=== PATIENT | female | born 1955 ===

== ENCOUNTER 2023-04-28 14:21 | Inpatient (IN) | payer BC, MEDICARE, OTHER ==
[~2023-04-28] VITALS: Ht 165.1 cm; Wt 67.6 kg
[2023-04-28 15:04] LABS: Basophils # (auto) 0 10 ^3/uL (0-0.2); Basophils % (auto) 0.7 % (0.0-2.0); Eosinophils # (auto) 0.2 10 ^3/uL (0-0.8); Eosinophils % (auto) 3.8 % (0.0-7.0); Hematocrit 39.6 % (36.0-46.0); Hemoglobin 13.1 g/dL (12.2-16.2); Lymphocytes # (auto) 1.7 10 ^3/uL (0.4-5.4); Lymphocytes % (auto) 26.1 % (10.0-50.0); Mean Corpuscular Hemoglobin 29.4 pg (28.0-32.0); Mean Corpuscular Hgb Conc. 33.1 g/dL (32.0-36.0); Mean Corpuscular Volume 88.7 fL (80.0-100.0); Monocytes # (auto) 0.6 10 ^3/uL (0-1.3); Monocytes % (auto) 8.9 % (0.0-12.0); Neutrophils % (auto) 60.5 % (37.0-80.0); Nucleated Red Blood Cells % 0.1 %; Red Blood Cells 4.47 10^6/uL (4.0-5.20); Red Cell Distribution Width 14.4 % (11.8-14.3); White Blood Cell 6.5 10^3/uL (4.4-10.8)
[2023-04-28 15:21] LABS: Potassium 3.6 mmol/L (3.5-5.1)
[2023-04-28 15:34] LABS: Albumin 3.5 g/dL (3.4-5.0); BUN/Creatinine Ratio 24.7 (10.0-20.0); Bilirubin, Total 0.7 mg/dL (0.2-1.0); Calcium 8.8 mg/dL (8.5-10.1)
[2023-04-28] MEDS ORDERED: SODIUM CHLORIDE 0.9% 1,000 ML IV ONE (16:45)
[2023-04-28] MEDS ORDERED: MORPHINE SULFATE 4 MG/ML SYR/VIAL IV ONE (16:45)
[2023-04-28] MEDS ORDERED: ONDANSETRON HCL 4 MG/2 ML VIAL IV ONE (16:45)
[2023-04-28 17:16] LABS: INR 1.06 (0.9-1.15); Partial Thromboplastin Time 28.3 SEC (24.5-34.5); Prothrombin Time 11.1 sec (9.3-11.8)
[2023-04-28] MEDS ORDERED: ACETAMINOPHEN 325 MG TAB PO PRN (18:30)
[2023-04-28] MEDS ORDERED: LISI10TA34 PO (18:32)
[2023-04-28] MEDS ORDERED: ATEN50TA PO (18:32)
[2023-04-28] MEDS ORDERED: ROPI3TAB4 PO (18:32)
[2023-04-28] MEDS: SODIUM CHLORIDE 0.9% 1,000 ML IV SCH (22:31)
[2023-04-28] MEDS: CARBIDOPA W LEVODOPA 25/100mg TABLET PO SCH (22:31)
[2023-04-28 22:33] VITALS: PULSE 83; RESP 18; O2SAT 100
[2023-04-28 23:51] VITALS: BP 139/82; PULSE 80; RESP 18; TEMP 97.7; O2SAT 91
[2023-04-29] VITALS (7 sets, daily range): BP systolic 133–155; BP diastolic 75–84; PULSE 68–82; RESP 16–18; TEMP 97.6–97.9; O2SAT 91–97
[2023-04-29] MEDS: SODIUM CHLORIDE 0.9% 1,000 ML IV SCH ×4 (01:10→22:04)
[2023-04-29] MEDS ORDERED: OXYB5TAB10 PO (02:26)
[2023-04-29] MEDS ORDERED: DEXT20CA PO (02:26)
[2023-04-29] MEDS ORDERED: RASA1TAB4 PO (02:26)
[2023-04-29] MEDS: CARBIDOPA W LEVODOPA 25/100mg TABLET PO SCH ×3 (05:49→22:06)
[2023-04-29 06:14] LABS: Potassium 3.7 mmol/L (3.5-5.1)
[2023-04-29 06:18] LABS: Albumin 3.2 g/dL (3.4-5.0); BUN/Creatinine Ratio 25.8 (10.0-20.0); Calcium 8.7 mg/dL (8.5-10.1)
[2023-04-29 06:20] LABS: Bilirubin, Total 1.2 mg/dL (0.2-1.0); Total Protein 6.3 g/dL (6.4-8.2)
[2023-04-29 06:22] LABS: Basophils # (auto) 0 10 ^3/uL (0-0.2); Basophils % (auto) 0.6 % (0.0-2.0); Eosinophils # (auto) 0.4 10 ^3/uL (0-0.8); Eosinophils % (auto) 7.3 % (0.0-7.0); Hematocrit 37.8 % (36.0-46.0); Hemoglobin 12.9 g/dL (12.2-16.2); Lymphocytes # (auto) 1.5 10 ^3/uL (0.4-5.4); Lymphocytes % (auto) 28.6 % (10.0-50.0); Mean Corpuscular Hemoglobin 30.5 pg (28.0-32.0); Mean Corpuscular Volume 89.6 fL (80.0-100.0); Monocytes # (auto) 0.5 10 ^3/uL (0-1.3); Monocytes % (auto) 9.5 % (0.0-12.0); Neutrophils # (auto) 2.9 10 ^3/uL (1.6-8.6); Nucleated Red Blood Cells % 0.1 %; Red Blood Cells 4.22 10^6/uL (4.0-5.20); Red Cell Distribution Width 14.4 % (11.8-14.3); White Blood Cell 5.4 10^3/uL (4.4-10.8)
[2023-04-29] MEDS: ATENOLOL 50 MG TAB PO SCH (09:43)
[2023-04-29] MEDS: LISINOPRIL 10 MG TAB PO SCH (09:43)
[2023-04-29] MEDS ORDERED: PANTOPRAZOLE 40 MG/10 ML VIAL INJ IV SCH (10:00)
[2023-04-29] MEDS ORDERED: ONDANSETRON HCL 4 MG/2 ML VIAL ONE (10:38)
[2023-04-29] MEDS ORDERED: PROPOFOL 10 MG/ML 20 ML IV ONE (10:38)
[2023-04-29] MEDS ORDERED: KETOROLAC TROMETH 30 MG/ML 1ML VIAL ONE (10:38)
[2023-04-29] MEDS ORDERED: ROCURONIUM 10MG/ML 10ML VIAL IV ONE ×2 (10:38→14:34)
[2023-04-29] MEDS ORDERED: DexAMETHasone SOD PHOS 10MG/1ML VIAL INJ ONE (10:38)
[2023-04-29] MEDS ORDERED: GLYCOPYRROLATE 0.2 MG/ML 1ML VIAL ONE (10:38)
[2023-04-29] MEDS ORDERED: BUPIVACAINE 0.5% P/F INJ 10 ML VIAL ONE (11:02)
[2023-04-29] MEDS ORDERED: DexAMETHasone SOD PHOS 4 MG/1ML SDV INJ ONE (11:02)
[2023-04-29] MEDS ORDERED: ceFAZolin 1GM/50ML 100 ML IV ONE (11:52)
[2023-04-29] MEDS ORDERED: TRANEXAMIC ACID 0 ML ONE (12:27)
[2023-04-29] MEDS ORDERED: SUGAMMADEX 200mg/2ml Vial (100MG/ML) IV ONE (12:45)
[2023-04-29] MEDS ORDERED: LIDOCAINE 2% JELLY 11ml (GLYDO) ONE (12:45)
[2023-04-29] MEDS ORDERED: TRANEXAMIC ACID 20 ML ONE (12:50)
[2023-04-29] MEDS ORDERED: VANCOMYCIN HCL 1000 MG VL ONE (12:51)
[2023-04-29] MEDS ORDERED: ONDANSETRON HCL 4 MG/2 ML VIAL IV PRN ×2 (13:30→17:30)
[2023-04-29] MEDS ORDERED: SODIUM CHLORIDE LOCK 10 ML ONE ×2 (13:36→14:14)
[2023-04-29] MEDS ORDERED: ePHEDrine SULFATE 50 MG/ML AMP ONE (13:36)
[2023-04-29] MEDS ORDERED: ESMOLOL HCL 10 ML IV ONE (13:43)
[2023-04-29] MEDS ORDERED: PHENYLEPHRINE HCL 10 MG/ML VL ONE (14:14)
[2023-04-29] MEDS ORDERED: HYDROmorphone HCL 2 MG/ML VL/or syr IV PRN ×2 (17:30)
[2023-04-29] MEDS ORDERED: LACTATED RINGER'S 1,000 ML IV SCH (20:30)
[2023-04-29] MEDS: ceFAZolin 1GM/50ML 50 ML IV SCH (22:04)
[2023-04-30] MEDS: ACETAMINOPHEN/CODEINE#3 (300/30mg) TAB PO PRN ×3 (01:04→13:52)
[2023-04-30] MEDS: SODIUM CHLORIDE 0.9% 1,000 ML IV SCH ×3 (03:50→17:10)
[2023-04-30 05:00] VITALS: BP 97/56; PULSE 71; RESP 17; TEMP 97.6; O2SAT 100
[2023-04-30] MEDS: ceFAZolin 1GM/50ML 50 ML IV SCH ×2 (06:11→13:51)
[2023-04-30] MEDS: CARBIDOPA W LEVODOPA 25/100mg TABLET PO SCH ×2 (06:11→13:51)
[2023-04-30 08:00] VITALS: PULSE 72; RESP 17; O2SAT 95
[2023-04-30 09:00] VITALS: BP 105/59; PULSE 72; RESP 17; TEMP 97.6; O2SAT 95
[2023-04-30] MEDS: ATENOLOL 50 MG TAB PO SCH (09:51)
[2023-04-30] MEDS ORDERED: HYDR-4902 PO (11:07)
[2023-04-30 13:00] VITALS: BP 99/54; PULSE 73; RESP 17; TEMP 98.4; O2SAT 99
[2023-04-30] MEDS: LISINOPRIL 10 MG TAB PO SCH (13:35)
[2023-04-30 15:08] VITALS: BP 109/51; PULSE 72; TEMP 36.9
[2023-04-30 16:52] VITALS: BP 110/58; PULSE 74; RESP 17; TEMP 98.1; O2SAT 92
== END 2023-04-30 17:31 | disposition home or self-care (01) | DRG 511 ==
LOC: ER 14:21 → OVERFLOW 18:29 → EAST 22:43
PROVIDERS: ADMIT Nurse Practitioner Family; ATTEND Hospitalist
PROC: 0RSJ0ZZ Reposition Right Shoulder Joint, Open Approach (ICD-10-PCS; principal; 2023-04-29 12:58)
DX: S43.034A Inferior dislocation of right humerus, initial encounter (principal); S42.251A Displaced fracture of greater tuberosity of right humerus, initial encounter for closed fracture; S14.3XXA Injury of brachial plexus, initial encounter; G20 Parkinson's disease; I10 Essential (primary) hypertension; W18.39XA Other fall on same level, initial encounter; Y93.89 Activity, other specified; Y92.89 Other specified places as the place of occurrence of the external cause; Y99.8 Other external cause status; G54.0 Brachial plexus disorders
CPT/HCPCS: 36415; 71045; 73020; 73030; 76000; 80053; 83735; 85025; 85610; 85730; 86850; 86900; 86901; 87081; 93005; 96361; 96374; C9113; G0378; J0690; J1100; J1885; J2405; J2704; J3490